=== PATIENT | female | born 1940 | race Caucasian/White ===

== ENCOUNTER → 2023-04-03 | Outpatient (CLI) | payer MEDICARE, OTHER ==
[~2023-04-03] MED LIST: ACTONEL 35MG TA35 MG PO; ALEVE 220MG220 MG PO; ASPIR-LOW81 MG PO; CALTRATE-600 W600 MG PO; CENTRUM SILVER1 TA1 PO; DETROL LA2 PO; FERROUS SU325 MG/TAB PO; FOLIC ACID PO; HCTZ 25MG25 MG PO; LORATADINE10 MG PO; NORMODYNE100 MG PO; TYLENOL 500MG500 MG PO; VITAMIN C500 MG PO
== END ==
LOC: MHCPAIN 13:42
DX: M54.16 Radiculopathy, lumbar region (principal); M43.10 Spondylolisthesis, site unspecified; M47.816 Spondylosis without myelopathy or radiculopathy, lumbar region
CPT/HCPCS: G0463